=== PATIENT | male | born 1965 | race Two or more races ===

== ENCOUNTER 2018-04-30 11:30 | Outpatient (AMBR) | payer MEDICAID, SELFPAY ==
--- NOTE | 2018-04-27 16:02 | PT.ODAYNRPT ---
PT Outpatient Daily Note Date of Service: April 27, 2018 OP Daily Note Visit Reasons: back pain Outpatient Physical Therapy Treatment Date: 04/27/18 Subjective: L L flank is hurting and sometimes radiates pain down the LE. Objective: See F/S for therex MT: manual C/S distraction , STM C/S x15' Assessment: Moderate tissue irritability limits exercise tolerance. He does the bike revolutions very slowly and has difficulty with transitional movements. Plan: Continue per POC Length of Time (minutes) of Treatment: 30 Minutes Office Procedures PT Procedures PT Date of Service: 04/27/18 Therapeutic Exercise 15 minutes: Yes Manual Community Development Coordinator 15 minutes: Yes
--- NOTE | 2018-04-30 12:26 | PTNOTE_ITS ---
PT OP Progress/Discharge Note Date of Service: April 30, 2018 Progress Note/DC Note Progress Note/Discharge Note: DC Note Patient Information Visit Reasons: back pain Service Continue Service or Discharge: Discharge Discharge Date: 04/30/18 Status Subjective: No lasting changes in ssx or function since starting therapy. Temporary relief that lasts up to a day of neck and LBP but pain returns and he is the same. Objective: Same as time of evaluation Assessment: Pt attended 5/5 Rx visits and made limited progress with therapy goals due to continued high tissue irritability that limits transitional movements, squatting and bending tolerance. 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 Plan: Pt is discharged back to provider for further workup. Office Procedures PT Procedures PT Date of Service: 04/27/18 Therapeutic Exercise 15 minutes: Yes Manual Ladies' Hat Trimmer 15 minutes: Yes PT Procedures PT Date of Service: 04/30/18 Traction Mechanical: Yes Therapeutic Exercise 15 minutes: Yes
== END 2018-05-24 23:59 | disposition home or self-care (01) ==
PROVIDERS: PCP Family Medicine; Referring Provider Family Medicine
DX: M54.2 Cervicalgia (principal); M54.42 Lumbago with sciatica, left side
CPT/HCPCS: 97012; 97110; 97140

== ENCOUNTER 2024-03-08 22:59 | Emergency (ER) | payer MEDICARE, MEDICAID, SELFPAY ==
[2024-03-08 23:00] VITALS: BMI 27.7
[2024-03-08 23:15] VITALS: BP 134/86; PULSE 76; RESP 18; TEMP 36.7; O2SAT 98
--- NOTE | 2024-03-08 23:20 | XR_ITS ---
Examination: PA chest lateral 2 views Technique: Upright PA lateral chest 2 views Exam date and time: March 08, 2024 11:26 PM Comparison December 10, 2010 Indications: Coughing beginning 5 days ago. Findings: Mild scarring in the lingular segment No lobar pneumonia or pulmonary edema The osseous structures are intact Impression: No interval pneumonia or pulmonary edema
--- NOTE | 2024-03-08 23:21 | PD.EDURI ---
Upper Respiratory Inf. RME/HPI General Chief Complaint: Flu Like Symptoms Stated Complaint: COUGHING BACK PAIN X 4 DAYS Time Seen by Provider: 03/08/24 23:16 Arrival date/time: 03/08/24 22:59 59-year-old male reports with complaints of cough congestion body aches and shortness of breath with back pain x 4 days. Patient states all symptoms with the exception of the cough and the back pain has resolved. Patient reports taking multiple cnzu-lbu-oxatfnk medications with no relief of symptoms. He denies fever chills chest pain nausea vomiting or abdominal pain Limitations: no limitations Related Data Home Medications ?Medication ?Instructions ?Recorded ?Confirmed duloxetine 20 mg capsule,delayed 1 cap PO BID 08/08/21 08/08/21 release lidocaine 5 % topical patch 1 patch topical Q12H 08/08/21 08/08/21 loratadine 10 mg tablet 1 tab PO QDAY 08/08/21 08/08/21 sulindac 150 mg tablet 1 tab PO BID 08/08/21 08/08/21 triamcinolone acetonide 0.1 % 1 ea topical BID 08/08/21 08/08/21 topical ointment Previous Rx's ?Medication ?Instructions ?Recorded promethazine 6.25 mg-codeine 10 5 ml PO Q6H PRN cough #118 mL 03/09/24 mg/5 mL syrup Allergies Allergy/AdvReac Type Severity Reaction Status Date / Time No Known Allergies Allergy Verified 03/08/24 23:01 Review of Systems Constitutional Constitutional: Denies chills, Denies fever(s), Denies headache(s) and Denies weakness ENT Ears, Nose, Mouth, and Throat: Denies headache(s) and Denies vertigo Cardiovascular Cardiovascular: Denies chest pain and Denies dyspnea Respiratory Respiratory: Reports cough and Denies dyspnea Gastrointestinal Gastrointestinal: Denies nausea and Denies vomiting Musculoskeletal Musculoskeletal: Reports back pain and Denies myalgias Integumentary/Breasts Skin/Breast: Denies erythema and Denies rash Neurologic Neurologic: Denies confusion, Denies headache(s), Denies vertigo and Denies weakness Psychiatric Psychiatric: Denies anxiety and Denies confusion Past Medical History Past Medical History CARDIAC: Negative Congestive Heart Failure RESPIRATORY: Negative Chronic Obstructive Pulmonary Disease (COPD) GENITOURINARY: Negative Renal Disease MUSCULOSKELETAL: Positive Musculoskeletal Disorders and Arthritis ENDOCRINE: Negative Diabetes Mellitus Type 1 or Diabetes Mellitus Type 2 Social History SMOKING STATUS: Never smoker ED Exam General Limitations: Present no limitations General appearance: Present alert and in no apparent distress Head Head exam: Present atraumatic Eye Eye exam: Present normal appearance, PERRL and EOMI ENT ENT exam: Present normal exam, normal oropharynx and mucous membranes moist Neck Neck exam: Present normal inspection, full ROM and trachea midline Chest Chest inspection: Present normal inspection and symmetric chest wall rise Respiratory Respiratory exam: Present normal lung sounds bilaterally Cardiovascular Cardiovascular exam: Present regular rate, normal rhythm and normal heart sounds Back Exam Back exam: Present normal inspection and full ROM Neurological Exam Neurological exam: Present alert, oriented X3 and CN II-XII intact Psychiatric Psychiatric exam: Present normal affect and normal mood Skin Skin exam: Present warm, dry, intact and normal color Course Quality Measures none Orders Category Date Time Status Bedside COVID-19 Antigen Test NOW Care 03/08/24 23:20 Completed Bedside Influenza A&B Antigen Test NOW Care 03/08/24 23:20 Completed XR chest 2V Stat Exams 03/08/24 23:20 Completed Vital Signs Vital signs: Vital Signs Temperature 98.0 F 03/08/24 23:15 Pulse Rate 76 03/08/24 23:15 Respiratory Rate 18 03/08/24 23:15 Blood Pressure 134/86 H 03/08/24 23:15 Pulse Oximetry (%) 98 03/08/24 23:15 Oxygen Delivery Method Room Air 03/08/24 23:15 Upper Respiratory Infection Patient data External records reviewed:: None Clinical information provided by:: patient Social determinants that could affect healthcare access:: none Patient has the following chronic illnesses:: none How is presenting disease/condition affected by chronic disease/condition?: no chronic disease Evaluation data The following diagnostics were reviewed and interpreted by me:: lab results and radiology exam(s) Lab and/or radiology exams considered but not ordered:: none Interpretation Summary: Negative for flu negative for COVID and negative for pneumonia Medications / Prescriptions Medications or Prescriptions considered but not ordered:: none Medication administrations:: none Consultations Consultation(s) initiated? (list below): No Diagnosis Upper Respiratory Differential Diagnosis: upper respiratory infection, sinusitis, viral infection and influenza Most likely diagnosis given after review of the tests above:: Viral infection Admission Indicated Admission indicated?: not indicated Explain why admission is indicated or not indicated:: viral infection Admission Request Was there a request for admission?: No Disposition Plan Disposition Plan: Discharge Discharge Attestation Discharge Attestation: The patient and all family members were given an opportunity to ask questions and understood the discharge instructions. Discharge instructions specifically effects, indications for sooner follow up or return to the emergency department, and the expected course of current diagnosis. Patient condition: Stable Discharge Plan Plan Patient Disposition: HOME (Self Care) Prescriptions/Referrals Prescriptions/Med Rec: New promethazine-codeine 6.25-10 mg/5 mL syrup 5 ml PO Q6H PRN (Reason: cough) Qty: 118 0RF No Action sulindac 150 mg tablet 1 tab PO BID Patient Comments: TOME LORNA TABLETA POR V A ORAL DOS VECES AL D A CON ALIMENTO PARA OSTEOARTHRITIS. triamcinolone acetonide 0.1 % ointment 1 ea TOPICAL BID Patient Comments: APLIQUE CAPA ZAIRA EL ARLENE AFECTADA DOS VECES AL D A lidocaine 5 % adhesive patch,medicated 1 patch TOPICAL Q12H Patient Comments: APPLY 1 PATCH BY TOPICAL ROUTE EVERY DAY (MAY WEAR UP TO 12HOURS.) loratadine 10 mg tablet 1 tab PO QDAY Patient Comments: TOME LORNA TABLETA POR V A ORAL TODOS LOS D CUANDO SEA NECESARIO POR ALERGIAS duloxetine 20 mg capsule,delayed release(DR/EC) 1 cap PO BID Patient Comments: TOME LORNA C PSULA DOS VECES AL D A Referrals: David Crawford MD [Primary Care Provider] - In 1 week Problem List Clinical Impression: Viral infection Patient/Caregiver Discharge Instructions Discharge Activity: activity as tolerated Education Materials: ED Viral Syndrome (Adult) Additional Instructions: Take medications as directed and needed hydrate well and follow with your primary care provider if no improvement in 3 to 5 days. Return to the emergency department if symptoms should worsen Print Language: Chinese Stand Alone Forms: Kelley Award Info., Patient Portal Info Letter
== END 2024-03-09 01:06 | disposition home or self-care (01) ==
PROVIDERS: Emergency Provider Emergency Medicine; PCP Family Medicine
DX: B34.9 Viral infection, unspecified (principal)
CPT/HCPCS: 71046; 87400; 87811; 99283

== ENCOUNTER 2024-09-19 12:05 | Emergency (ER) | payer MEDICARE, MEDICAID, SELFPAY ==
[2024-09-19 12:05] VITALS: BMI 25.8
[2024-09-19 12:14] VITALS: BP 154/93; PULSE 82; RESP 19; TEMP 37.1; O2SAT 97
--- NOTE | 2024-09-19 12:22 | XR_ITS ---
Examination: CT brain head without contrast. 2-D sagittal coronal reconstructions Date and time of exam:September 19, 2024, 1229 hrs. Indications: Onset left-sided headache with dizziness beginning 3 days ago. CTDI: vol (mGy):50.9. DLP: (mGycm):1052. Technique: Multiple CT axial sections of the brain have been obtained, 5 mm slice thickness. Contrast has not been administered. 2-D sagittal, coronal reconstructions have been obtained Low dose protocols were performed. One or more of the following dose reduction techniques were used; automated exposure control, adjustment of the mA and/or KV according to patient size, use of iterative reconstruction technique. Findings: No significant ventricular enlargement. Intra-axial or extra-axial hemorrhage density is not seen. No mass effect or midline shift Basal cisterns are not remarkable. Fourth ventricle is midline. Cranial vault intact. Impression: Negative for acute hemorrhage, mass effect or midline shift Advise clinical correlation and follow-up accordingly.
[2024-09-19 12:49] LABS: Basophils # (Auto) 0.0 Thou/mm3 (0.0-0.2); Basophils % (Auto) 1 % (0-2.5); Eosinophils # (Auto) 0.2 Thou/mm3 (0.0-0.5); Eosinophils % (Auto) 3 % (0-10); Hematocrit 45.7 % (41.0-53.0); Hemoglobin 15.4 g/dL (13.5-16.0); Immature Granulocytes Auto 0.02 Thou/mm3 (0.00-0.00); Lymphocytes # (Auto) 2.6 Thou/mm3 (1.0-4.8); Lymphocytes % (Auto) 42 % (10-50); Mean Corpuscular HGB Conc 33.7 g/dl (31.0-37.0); Mean Corpuscular Hemoglobin 31.1 pg (25.0-35.0); Mean Corpuscular Volume 92 fL (80-100); Monocytes # (Auto) 0.4 Thou/mm3 (0.0-0.8); Monocytes % (Auto) 7 % (0-12); Neutrophils # (Auto) 3.0 Thou/mm3 (1.8-7.7); Neutrophils % (Auto) 47 % (37-80); Nucleated Red Blood Cell # 0.00 Thou/mm3 (0.00-0.00); Nucleated Red Blood Cell % 0 /100 WBC (0); Platelet Count 200 Thou/mm3 (140-440); RDW Standard Deviation 42.3 fL (35.1-43.9); Red Blood Count 4.95 Miln/mm3 (4.50-5.90); White Blood Count 6.3 Thou/mm3 (3.8-10.6)
[2024-09-19 13:12] LABS: Alanine Aminotransferase 34 U/L (10-49); Albumin, Serum 4.0 gm/dL (3.5-5.0); Albumin/Globulin Ratio 1.3 (1.2-2.2); Alkaline Phosphatase 70 U/L (46-116); Anion Gap 6 (7-16); Aspartate Amino Transferase 26 U/L (0-34); BUN/Creatinine Ratio 10 Ratio (12-20); Bilirubin,Total 0.3 mg/dL (0.3-1.2); Blood Urea Nitrogen 12 mg/dL (9-23); Calcium 9.1 mg/dL (8.3-10.6); Calcium (Corrected) 9.1 mg/dL (8.5-10.1); Carbon Dioxide 27.8 mMol/L (20.0-31.0); Chloride 107 mMol/L (98-107); Creatinine (Component) 1.2 mg/dL (0.6-1.3); Estimated Creatinine Clearance 70.1 mL/min (>60); Globulin 3.0 gm/dL (2.3-3.5); Glucose 121 mg/dL (74-106); Osmolality,Calculated 281 (275-295); Potassium 4.1 mMol/L (3.4-5.1); Sodium 141 mMol/L (136-145); Total Protein 7.0 gm/dL (5.7-8.2); eGFR > 60 See Note
--- NOTE | 2024-09-19 14:25 | EDNOTE_ITS ---
ED Headache RME/HPI General Chief Complaint: Headache Stated Complaint: L-SIDED PÉREZ X3 DAYS WITH DIZZINESS Time Seen by Provider: 09/19/24 12:08 Arrival date/time: 09/19/24 12:05 This is a case of a 59-year-old male with no medical history came in in the emergency room due to left-sided headache on and off for 3 days with dizziness nausea but no vomiting no blurring of vision denies any numbness weakness tingling sensation denies any injury or trauma persistence of the symptoms this patient decided to sought consult here in the emergency room Limitations: no limitations Related Data Home Medications ?Medication ?Instructions ?Recorded ?Confirmed duloxetine 20 mg capsule,delayed 1 cap PO BID 08/08/21 08/08/21 release lidocaine 5 % topical patch 1 patch topical Q12H 08/0808/08/21 loratadine 10 mg tablet 1 tab PO QDAY 08/08/2108/08 sulindac 150 mg tablet 1 tab PO BID 08/08/21 triamcinolone acetonide 0.1 % 1 ea topical BID 2 08/08/21 topical ointment Previous Rx's ?Medication ?Instructions ?Recorded promethazine 6.25 mg-codeine 10 5 ml PO Q6H PRN cough #118 mL 03/09/24 mg/5 mL syrup pldvowrwsf-rsoxgsuokxlku-kzydsbpz 1 cap PO Q8H PRN lee ann n #12 caps 09/19/24 50 mg-300 mg-40 mg capsule (Fioricet) ondansetron 4 mg disintegrating 4 mg PO Q8H PRN nausea and 09/19/24 tablet vomiting #12 tabs Allergies Allergy/AdvReac Type Severity Reaction Status Date / Time No Known Allergies Allergy Verified 09/19/24 12:07 Review of Systems Review of Systems Systems Reviewed: All systems reviewed, normal except as documented Constitutional Constitutional: Reports system reviewed and no additional complaints, except as documented, Reports as per HPI, Denies chills, Denies fever(s), Denies frequent falls, Reports headache(s) and Denies weakness Eyes Eyes: Reports system reviewed and no additional complaints, except as documented, Reports as per HPI, Denies blurry vision, Denies change in vision, Denies floaters, Denies loss of vision and Denies other visual disturbances ENT Ears, Nose, Mouth, and Throat: Denies abnormal hearing, Denies disequilibrium, Reports dizziness, Reports headache(s) and Reports vertigo Cardiovascular Cardiovascular: Reports system reviewed and no additional complaints, except as documented, Reports as per HPI and Denies syncope Respiratory Respiratory: Reports system reviewed and no additional complaints, except as documented and Reports as per HPI Gastrointestinal Gastrointestinal: Reports system reviewed and no additional complaints, except as documented and Reports as per HPI Genitourinary Genitourinary: Reports system reviewed and no additional complaints, except as documented and Reports as per HPI Musculoskeletal Musculoskeletal: Reports system reviewed and no additional complaints, except as documented, Reports as per HPI, Denies abnormal gait, Denies numbness and Denies tingling Neurologic Neurologic: Reports system reviewed and no additional complaints, except as documented, Reports as per HPI, Denies abnormal gait, Denies abnormal hearing, Denies abnormal movements, Denies abnormal speech, Denies behavioral changes, Denies burning sensations, Denies confusion, Denies convulsions, Denies disequi librium, Reports dizziness, Denies localized weakness, Denies frequent falls, Reports headache(s), Denies lack of coordination, Denies loss of vision, Denies memory loss, Denies numbness, Denies other visual disturbances, Denies paresthesias, Denies radicular pain, Denies restless legs, Denies seizure-like activity, Denies sensory deficit, Denies syncope, Denies tingling, Denies tremor(s), Reports vertigo and Denies weakness Psychiatric Psychiatric: Denies behavioral changes, Denies confusion and Denies memory loss Past Medical History Past Medical History CARDIAC: Negative Congestive Heart Failure RESPIRATORY: Negative Chronic Obstructive Pulmonary Disease (COPD) GENITOURINARY: Negative Renal Disease MUSCULOSKELETAL: Positive Musculoskeletal Disorders and Arthritis ENDOCRINE: Negative Diabetes Mellitus Type 1 or Diabetes Mellitus Type 2 Social History SMOKING STATUS: Never smoker ED Exam General Limitations: Present no limitations General appearance: Present alert, in no apparent distress and other (Patient is awake alert oriented not in distress nontoxic looking well-hydrated well- nourished) Head Head exam: Present atraumatic, normocephalic and normal inspection Eye Eye exam: Present normal appearance, PERRL, EOMI and other (no pappiledema no hyphema) ENT ENT exam: Present normal exam, normal oropharynx and mucous membranes moist Neck Neck exam: Present normal inspection, full ROM, trachea midline and other (Negative for meningeal sign); Absent tenderness, meningismus, lymphadenopathy or thyromegaly Chest Chest inspection: Present normal inspection and symmetric chest wall rise Respiratory Respiratory exam: Present normal lung sounds bilaterally; Absent respiratory distress, wheezes, stridor, accessory muscle use or prolonged expiratory phase Cardiovascular Cardiovascular exam: Present regular rate, normal rhythm and normal heart sounds; Absent bradycardia, tachycardia, irregular rhythm, systolic murmur or diastolic murmur Abdominal Exam Abdominal exam: Present soft and normal bowel sounds; Absent distention, tenderness, guarding, rebound, rigidity, diminished bowel sounds, hyperactive bowel sounds or hypoactive bowel sounds Extremities Exam Extremities exam: Present normal inspection and full ROM Back Exam Back exam: Present normal inspection and full ROM Neurological Exam Neurological exam: Present alert, oriented X3, CN II-XII intact, normal gait, reflexes normal and other (Awake alert oriented x 4 no focal deficit GCS 15/15 steady gait CN II through XII is normal memory intact no facial droop no slurring of speech motor or sensory reflex were all normal in all extremities negative Babinski); Absent motor sensory deficit Psychiatric Psychiatric exam: Present normal affect and normal mood Skin Skin exam: Present warm, dry, intact and normal color Course Quality Measures none Orders Category Date Time Status CT head/brain wo con Stat Exams 09/19/24 12:22 Completed CBC Stat Lab 09/19/24 12:41 Completed CMP [Comprehensive Metabolic Panel] Stat Lab 09/19/24 12:41 Completed HYDROcodone*/APAP 5/325 [Conway 5/325] Med 09/19/24 14:20 Discontinued 1 tab PO X1 ONE Ketorolac Inj [Toradol Inj] Med 09/19/24 14:20 Discontinued 30 mg IM X1 ONE Ondansetron Odt [Zofran Odt] Med 09/19/24 14:20 Discontinued 4 mg PO X1 ONE Vital Signs Vital signs: Vital Signs Temperature 98.8 F 09/19/24 12:14 Pulse Rate 82 09/19/24 12:14 Respiratory Rate 19 09/19/24 12:14 Blood Pressure 154/93 H 09/19/24 12:14 Pulse Oximetry (%) 97 09/19/24 12:14 Oxygen Delivery Method Room Air 09/19/24 12:14 Patient is afebrile not tachycardic not tachypneic BP stable not hypoxic oxygen saturation is 97% in room air Headache MDM Narrative MDM Narrative:: This is a case of a 59-year-old male with no medical history came in in the emergency room due to left-sided headache on and off for 3 days with dizziness nausea but no vomiting no blurring of vision denies any numbness weakness tingling sensation denies any injury or trauma persistence of the symptoms this patient decided to sought consult here in the emergency room physical examination patient is awake alert oriented not in distress nontoxic looking well-hydrated well-nourished eye exam is normal no pappiledema negative for meningeal sign excellent skin turgor the rest of the physical exam is normal neurological exam is normal awake alert oriented x 4 no focal deficit GCS 15/15 steady gait CN II to XII is normal memory intact no facial droop no slurring of speech motor or sensory reflex were normal negative Babinski patient blood test showed no leukocytosis no anemia kidney and liver function is normal no electrolyte send balance CT scan is also normal at this point patient headache is possible due to migraine headache or tension headache patient was given Toradol and Conway and Zofran which patient condition markedly improved and resolved patient was advised to follow-up with PCP to be referred to neurologist for further evaluation and treatment of headache and for any recurrence persistent worsening symptoms or any emergent concern he will return in the emergency room emergently or call 911 Patient was discharged with comfortable condition walking with stable gait. Patient verbalized no further complains explained diagnosis and answered patient question. Patient is comfortable with the proposed management plan including the need to follow up with his/her primary care physician and any specialist if applicable Discussed patient for any urgent condition or worsening sx, He/She needed to go to emergency room immediately or call 911. Patient acknowledge the responsibility to follow up as instructed and to monitor her/his symptoms. For any persistence of the symptoms for more than 3-5 days return precaution advised. Discussed the result of the test and was given printed discharge instruction Patient data External records reviewed:: [facility] previous records Clinical information provided by:: patient Social determinants that could affect healthcare access:: none (None) Patient has the following chronic illnesses:: None How is presenting disease/condition affected by chronic disease/condition?: no chronic disease Evaluation data The following diagnostics were reviewed and interpreted by me:: lab results and radiology exam(s) Lab and/or radiology exams considered but not ordered:: Reviewed Interpretation Summary: Reviewed Medications / Prescriptions Medications or Prescriptions considered but not ordered:: Given Medication administrations:: Medication Administration History Discontinued Medications Hydrocodone Bitart/Acetaminophen (Hydrocodone/Apap 5/325 Tablet) 1 tab PO X1 ONE Stop: 09/19/24 14:21 Ketorolac Tromethamine (Ketorolac Inj 60 Mg/2 Ml Vial) 30 mg IM X1 ONE Stop: 09/19/24 14:21 Ondansetron HCl (Ondansetron Odt 4 Mg Tabrap) 4 mg PO X1 ONE; Protocol Stop: 09/19/24 14:21 Given Consultations Consultation(s) initiated? (list below): No Diagnosis Differential diagnosis headache: migraine, tension headache, headache and sinusitis Most likely diagnosis given after review of the tests above:: Migraine or tension headache Admission Indicated Admission indicated?: not indicated Explain why admission is indicated or not indicated:: Not indicated Admission Request Was there a request for admission?: No Admission Attestation Admission request attestation: Not indicated Disposition Plan Disposition Plan: Discharge Discharge Attestation Discharge Attestation: The patient and all family members were given an opportunity to ask questions and understood the discharge instructions. Discharge instructions specifically effects, indications for sooner follow up or return to the emergency department, and the expected course of current diagnosis. Patient condition: Stable Discharge Plan Plan Patient Disposition: HOME (Self Care) Patient condition on transfer: Stable Prescriptions/Referrals Prescriptions/Med Rec: New majhhvxxny-ioewnhoyfmqdp-eilj [Fioricet] 50-300-40 mg capsule 1 cap PO Q8H PRN (Reason: pain) Qty: 12 0RF ondansetron 4 mg tablet,disintegrating 4 mg PO Q8H PRN (Reason: nausea and vomiting) Qty: 12 0RF No Action sulindac 150 mg tablet 1 tab PO BID Patient Comments: TOME LORNA TABLETA POR V A ORAL DOS VECES AL D A CON ALIMENTO PARA OSTEOARTHRITIS. triamcinolone acetonide 0.1 % ointment 1 ea TOPICAL BID Patient Comments: APLIQUE CAPA ZAIRA EL ARLENE AFECTADA DOS VECES AL D A lidocaine 5 % adhesive patch,medicated 1 patch TOPICAL Q12H Patient Comments: APPLY 1 PATCH BY TOPICAL ROUTE EVERY DAY (MAY WEAR UP TO 12HOURS.) loratadine 10 mg tablet 1 tab PO QDAY Patient Comments: TOME LORNA TABLETA POR V A ORAL TODOS LOS D CUANDO SEA NECESARIO POR ALERGIAS duloxetine 20 mg capsule,delayed release(/EC) 1 cap PO BID Patient Comments: TOME LORNA C PSULA DOS VECES AL D A promethazine-codeine 6.25-10 mg/5 mL syrup 5 ml PO Q6H PRN (Reason: cough) Qty: 118 0RF Problem List Clinical Impression: Headache Patient/Caregiver Discharge Instructions Education Materials: Self-Care for Headaches Additional Instructions: Follow-up with your primary care physician in 2 days for reevaluation and to be referred to neurologist for further evaluation and treatment of your headache recurrence persistent worsening symptoms or any emergent concern return to the emergency room immediately or call 911 keep hydrated take your medication as directed Print Language: Icelandic Stand Alone Forms: Kelley Award Info., Patient Portal Info Letter PA/DIRECTOR CLOUD TRANSFORMATION Supervising Physician PA/DIRECTOR CLOUD TRANSFORMATION Supervising Physician: DR Julien
[2024-09-19] MEDS: KETOROLAC INJ 60 MG/2 ML VIAL 30 MG IM (14:59)
[2024-09-19] MEDS: ONDANSETRON ODT 4 MG TABRAP PO (15:00)
== END 2024-09-19 15:55 | disposition home or self-care (01) ==
LOC: SERX 15:07
PROVIDERS: Nurse Practitioner Family; Emergency Provider Emergency Medicine; PCP Physician Assistant
DX: R51.9 Headache, unspecified (principal); R42 Dizziness and giddiness
CPT/HCPCS: 36415; 70450; 80053; 85025; 96372; 99283; J1885; Q0162